=== PATIENT | female | born 1995 | race Hispanic/Latino ===

== ENCOUNTER 2017-10-23 20:16 | Emergency (ER) | payer BC ==
[2017-10-23 20:17] VITALS: BMI 33.6
[2017-10-23 20:25] VITALS: RESP 18; O2SAT 97
--- NOTE | 2017-10-23 20:53 | ED PDOC ---
HPI: Skin/Bite Injury Time Seen by Provider: 10/23/17 20:32 Chief Complaint (Nursing): Abnormal Skin Integrity Chief Complaint (Provider): right vaginal pain History Per: Patient History/Exam Limitations: no limitations Onset/Duration Of Symptoms: Days (1 week) Current Symptoms Are (Timing): Still Present Quality Of Symptoms: Painful Additional Complaint(s): 22 y/o female history of type I diabetes presents with painful bump to right vaginal area x 1 week. Patient states area started as bump, and continued to grow in size and now with surrounding erythema. Patient states she had similar abscess on left side of vaginal area and became septic from it. Denies fever, nausea/vomiting, abdominal/pelic pain, groin pain/swelling, drainage from area, dysuria, hematuria. Past Medical History Reviewed: Historical Data, Nursing Documentation, Vital Signs Vital Signs: Last Vital Signs Temp 98.2 F 10/24/17 00:15 Pulse 90 10/24/17 00:15 Resp 18 10/24/17 00:15 BP 128/69 10/24/17 00:15 Pulse Ox 97 10/23/17 20:58 - Medical History PMH: Diabetes - Surgical History Surgical History: Cholecystectomy - Family History Family History: States: Unknown Family Hx - Living Arrangements Living Arrangements: Alone (homeless) - Social History Current smoker - smoking cessation education provided: No Alcohol: Social Drugs: Denies - Home Medications Home Medications: Ambulatory Orders Medication Instructions Recorded Cephalexin [Keflex] 500 mg PO Q6 #40 capsule 10/24/17 Ibuprofen [Motrin Tab] 800 mg PO Q8 PRN #15 tab 10/24/17 Sulfamethoxazole/Trimethoprim 1 tab PO BID #20 tab 10/24/17 [Bactrim DS 800 mg-160 mg] - Allergies Allergies/Adverse Reactions: Allergies Allergy/AdvReac Type Severity Reaction Status Date / Time ondansetron [From Zofran] Allergy RASH Verified 10/23/17 20:21 Review of Systems ROS Statement: Except As Marked, All Systems Reviewed And Found Negative Skin: Positive for: Lesions Physical Exam - Reviewed Nursing Documentation Reviewed: Yes Vital Signs Reviewed: Yes - Physical Exam Appears: Positive for: Well, Non-toxic, No Acute Distress Head Exam: Positive for: ATRAUMATIC, NORMAL INSPECTION, NORMOCEPHALIC Skin: Positive for: Normal Color, Rash (erythema, edema to inferior right mons pubis, + with central head draining. No surrounding fluctuance noted. No groin swelling/tenderness bilaterally. Exam payment specialist Charisma Alba RN) Eye Exam: Positive for: Normal appearance ENT: Positive for: Normal ENT Inspection Cardiovascular/Chest: Positive for: Regular Rate, Rhythm Respiratory: Positive for: Normal Breath Sounds Gastrointestinal/Abdominal: Positive for: Normal Exam Back: Positive for: Normal Inspection Extremity: Positive for: Normal ROM Neurologic/Psych: Positive for: Alert, Oriented - Laboratory Results Result Diagrams: 10/23/17 21:05 10/23/17 21:05 - ECG O2 Sat by Pulse Oximetry: 97 - Progress ED Course And Treament: labs, IV fluids, IV clindamycin Patient given 5 units IV insulin for BS of 416 Repeat BS 211 Patient offered admission for monitoring/control of blood sugars, antibiotics; patient states she would like to go home and will monitor sugars/trial PO antibiotics first. Advised warm compresses/sitz baths Follow up with PMD in 48 hours Return precautions given Disposition - Clinical Impression Clinical Impression: Hyperglycemia, Cellulitis, Abscess - Patient ED Disposition Is Patient to be Admitted: No Counseled Patient/Family Regarding: Studies Performed, Diagnosis, Need For Followup, Rx Given - Disposition Disposition: Routine/Home Disposition Time: 00:20 Condition: IMPROVED Prescriptions: Cephalexin [Keflex] 500 mg PO Q6 #40 capsule Ibuprofen [Motrin Tab] 800 mg PO Q8 PRN #15 tab PRN Reason: Pain, Moderate (4-7) Sulfamethoxazole/Trimethoprim [Bactrim DS 800 mg-160 mg] 1 tab PO BID #20 tab Instructions: Cellulitis and Erysipelas (Skin Infections), Hyperglycemia, Adult Forms: [employer] ([place]ian), [facility] ED School/Work Excuse
[2017-10-23 21:31] LABS: BASO # 0.1 K/uL (0.0-0.2); BASO % 0.4 % (0.0-2.0); HEMOGLOBIN 12.1 g/dL (12.0-16.0); LYMPH # 3.1 K/uL (1.0-4.3); LYMPH % 27.3 % (20.0-40.0); MEAN CELL VOLUME 89.5 fl (81.0-99.0); MEAN CORPUSCULAR HEMOGLOBIN 29.5 pg (27.0-31.0); MEAN PLATELET VOLUME 7.3 fl (7.2-11.7); MONO % 8.4 % (0.0-10.0); NEUT # 7.3 K/uL (1.8-7.0); NEUT % 63.9 % (50.0-75.0); RBC 4.1 Mil/uL (3.80-5.20); RED CELL DISTRIBUTION WIDTH 13.5 % (11.5-14.5); WHITE BLOOD COUNT 11.5 K/uL (4.8-10.8)
[2017-10-23] MEDS ORDERED: Sodium Chloride 0.9% 1,000 ML IV STA (21:31)
[2017-10-23 22:03] LABS: ALB/GLOB RATIO 1.1 (1.0-2.1); ALBUMIN 3.5 g/dL (3.5-5.0); ALT/SGPT 76 U/L (9-52); AST/SGOT 60 U/L (14-36); BLOOD UREA NITROGEN 17 mg/dl (7-17); CALCIUM 8.6 mg/dL (8.4-10.2); GFR AFRICAN-AMERICAN > 60; GFR NON-AFRICAN AMERICAN > 60
[2017-10-23] MEDS ORDERED: Clindamycin 600mg/50ml NS 600 MG/50 ML BAG IVPB ONE (22:08)
[2017-10-23] MEDS ORDERED: Insulin Regular 100 units/ml IV STA (22:13)
[2017-10-23 23:56] LABS: VENOUS BLOOD GAS PCO2 38 mmHg (40-60); VENOUS BLOOD GAS PO2 34 mm/Hg (30-55); VENOUS BLOOD PH 7.37 (7.32-7.43)
[2017-10-24 00:58] VITALS: BP 115/67; PULSE 97; TEMP 98.1
== END 2017-10-24 00:42 | disposition home or self-care (01) ==
LOC: H.ER 20:16
DX: N76.4 Abscess of vulva (principal); E10.65 Type 1 diabetes mellitus with hyperglycemia; Z79.4 Long term (current) use of insulin
CPT/HCPCS: 80053; 81025; 82803; 82948; 83605; 85025; 87040; 87070; 96361; 96365; 96375; 99284; J1885; J7030